=== PATIENT | female | born 1960 | race Caucasian/White ===

== ENCOUNTER 2022-01-27 08:09 | Outpatient (CLI) | payer OTHER ==
[2022-01-27] MEDS ORDERED: Iopamidol 300 61% 100 ML VIAL FS ONE (14:08)
== END 2022-01-27 08:10 | disposition home or self-care (01) ==
LOC: CSHCT 08:09
PROVIDERS: ATTEND Internal Medicine Gastroenterology
DX: R10.32 Left lower quadrant pain (principal); K59.09 Other constipation; K58.9 Irritable bowel syndrome, unspecified; K62.3 Rectal prolapse; Z86.010 Personal history of colon polyps; K76.89 Other specified diseases of liver; K57.30 Diverticulosis of large intestine without perforation or abscess without bleeding
CPT/HCPCS: 74177; Q9967